=== PATIENT | male | born 1940 | race Asian ===

== ENCOUNTER 2019-02-02 08:50 | Day surgery (SDC) | payer OTHER ==
[~2019-02-02] VITALS: Ht 175.3 cm; Wt 83.9 kg
== END 2019-02-02 10:55 | disposition home or self-care (01) ==
LOC: OR 08:50
PROC: 3E0R33Z Introduction of Anti-inflammatory into Spinal Canal, Percutaneous Approach (ICD-10-PCS; principal; 2019-02-02)
PROC: 3E0R3BZ Introduction of Anesthetic Agent into Spinal Canal, Percutaneous Approach (ICD-10-PCS; 2019-02-02)
DX: M53.3 Sacrococcygeal disorders, not elsewhere classified (principal); M46.1 Sacroiliitis, not elsewhere classified
CPT/HCPCS: J1020; J3490

== ENCOUNTER → 2019-02-16 | Day surgery (SDC) | payer OTHER | LOC: OR 03:30 | PROC: 3E0R33Z Introduction of Anti-inflammatory into Spinal Canal, Percutaneous Approach (ICD-10-PCS; principal; 2019-02-16) | PROC: 3E0R3BZ Introduction of Anesthetic Agent into Spinal Canal, Percutaneous Approach (ICD-10-PCS; 2019-02-16) | DX: M53.3 Sacrococcygeal disorders, not elsewhere classified (principal); M46.1 Sacroiliitis, not elsewhere classified | CPT/HCPCS: J1020; J3301; J3490 ==